=== PATIENT | male | born 1970 | race African-American/Black ===

== ENCOUNTER 2018-01-15 16:39 | Emergency (ER) | payer SELFPAY ==
[2018-01-15] MEDS ORDERED: Oxymetazoline HCl 0.05% ( 15 ML ) ONE (17:54)
== END 2018-01-15 18:02 | disposition home or self-care (01) ==
LOC: ERS 16:39
DX: J30.2 Other seasonal allergic rhinitis (principal); E11.9 Type 2 diabetes mellitus without complications; I10 Essential (primary) hypertension; E78.5 Hyperlipidemia, unspecified; Z79.4 Long term (current) use of insulin; Z79.899 Other long term (current) drug therapy
CPT/HCPCS: 99283

== ENCOUNTER 2018-04-22 12:58 | Emergency (ER) | payer BC, SELFPAY | END 2018-04-22 15:49 | disposition home or self-care (01) | LOC: ERS 12:58 | DX: H93.8X2 Other specified disorders of left ear (principal); H92.02 Otalgia, left ear; E11.9 Type 2 diabetes mellitus without complications; E78.5 Hyperlipidemia, unspecified; I10 Essential (primary) hypertension | CPT/HCPCS: 99282 ==

== ENCOUNTER 2019-10-27 22:51 | Emergency (ER) | payer BC, SELFPAY ==
[2019-10-27] MEDS ORDERED: HYDROcodone/Acetaminophen 10/325 mg Tablet ONE (23:05)
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
== END 2019-10-28 00:06 | disposition home or self-care (01) ==
LOC: ERS 22:51
DX: S46.911A Strain of unspecified muscle, fascia and tendon at shoulder and upper arm level, right arm, initial encounter (principal); E11.9 Type 2 diabetes mellitus without complications; E78.5 Hyperlipidemia, unspecified; E78.00 Pure hypercholesterolemia, unspecified; I10 Essential (primary) hypertension; Z79.4 Long term (current) use of insulin; Z79.899 Other long term (current) drug therapy; V89.2XXA Person injured in unspecified motor-vehicle accident, traffic, initial encounter